=== PATIENT | male | born 1960 | race Caucasian/White ===

== ENCOUNTER 2018-07-14 03:49 | Emergency (ER) | payer BC ==
[~2018-07-14] VITALS: Ht 182.9 cm; Wt 78.9 kg
[2018-07-14 04:05] VITALS: Ht 182.9 cm; Wt 78.9 kg
[2018-07-14 06:05] VITALS: BP 131/81
== END 2018-07-14 06:05 | disposition home or self-care (01) ==
LOC: ED 03:49
DX: N20.1 Calculus of ureter (principal); Z98.890 Other specified postprocedural states; Z88.8 Allergy status to other drugs, medicaments and biological substances
CPT/HCPCS: J1885; Q0162